=== PATIENT | male | born 1975 | race Caucasian/White ===

== ENCOUNTER 2018-09-08 10:07 | Emergency (ER) | payer OTHER ==
[~2018-09-08] VITALS: Ht 203.2 cm; Wt 86.0 kg
[2018-09-08] MEDS ORDERED: ONDANSETRON HCL 4MG/2ML INJ IV STA (10:51)
[2018-09-08] MEDS ORDERED: SODIUM CHLORIDE 0.9% 1,000 ML IV ONE (10:51)
[2018-09-08 11:23] LABS: BASOPHILS % 0.5 % (0.0-2.0); EOSINOPHILS % 1.5 % (0.0-5.0); HEMATOCRIT. 46.1 % (42.0-52.0); HEMOGLOBIN. 16.1 g/dL (14.0-18.0); LYMPHOCYTES % 39.1 % (20.0-50.0); MEAN CORPUSCULAR HEMOGLOBIN 32.3 pg (28.0-32.0); MEAN CORPUSCULAR VOLUME 92.6 fL (80.0-94.0); MEAN PLATELET VOLUME 8.6 fl (7.4-10.4); NEUTROPHILS % 51.9 % (40.0-76.0); PLATELET 219 x1000/uL (130-400); RED BLOOD CELL COUNT 4.98 mill/uL (4.7-6.1); RED CELL DISTRIBUTION WIDTH 12.8 % (11.6-14.6)
[2018-09-08 11:29] LABS: CHLORIDE 105 mEq/L (98-107)
[2018-09-08] MEDS ORDERED: MECLIZINE 25MG TABLET PO ONE (11:45)
[2018-09-08 13:14] VITALS: BP 124/72
== END 2018-09-08 13:18 | disposition home or self-care (01) ==
LOC: ER 10:07
DX: R42 Dizziness and giddiness (principal); H55.00 Unspecified nystagmus
CPT/HCPCS: 36415; 70450; 71045; 80053; 82962; 85025; 93005; 96360; 96361; 99284; J7030; J2405